=== PATIENT | female | born 1945 | race Caucasian/White ===

== ENCOUNTER 2021-12-15 14:40 | Inpatient (IN) ==
[2021-12-15] MEDS ORDERED: Melatonin 3 MG TABLET PO PRN (18:07)
[2021-12-15] MEDS ORDERED: Naloxone 0.4 MG/ML INJ IVP PRN (18:07)
[2021-12-15] MEDS ORDERED: Ondansetron ODT 4 MG TAB.RAPDIS SL PRN (18:07)
[2021-12-15] MEDS ORDERED: Nitroglycerin 0.4 MG TAB.SUBL SL PRN (21:02)
[2021-12-15] MEDS ORDERED: Morphine Sulfate 2 MG/ML SYRINGE IVP PRN (21:03)
[2021-12-15] MEDS ORDERED: Perflutren Lipid Microsphere 1.3 ML in 0.9 % Sodium Chloride 8.7 ML IVP PRN (21:05)
[2021-12-15 21:34] LABS: Basophils # 0.1 K/mcL (0.0-0.2); Basophils % 0.8 %; Eosinophils # 0.1 K/mcL (0.0-0.6); Eosinophils % 1.4 %; Hematocrit 30.5 % (35.3-44.9); Hemoglobin 9.5 g/dL (11.5-15.4); Immature Granulocytes % 0.3 % (0-4); Lymphocytes # 1.2 K/mcL (0.6-4.6); Lymphocytes % 15.6 %; Mean Corpuscular HGB Conc 31.1 g/dL (31.6-35.5); Mean Corpuscular Hemoglobin 25.7 pg (28.0-33.3); Mean Corpuscular Volume 82.4 fL (83.0-100.0); Mean Platelet Volume 9.4 fL (9.4-12.4); Monocytes # 0.6 K/mcL (0.0-1.3); Monocytes % 7.2 %; Neutrophils # 5.7 K/mcL (1.6-8.9); Platelet Count 390 K/mcL (140-400); Red Cell Distribution Width 14.7 % (11.5-14.5); Segmented Neutrophils % 74.7 %; White Blood Count 7.7 K/mcL (4.3-11.1)
[2021-12-15 21:53] LABS: Alanine Aminotransferase 5 Units/L (7-52); Albumin 3.3 g/dL (3.5-5.7); Alkaline Phosphatase 52 Units/L (34-104); Aspartate Amino Transferase 10 Units/L (13-39); BUN/Creatinine Ratio 21 (6-26); Bilirubin,Total 0.5 mg/dL (0.3-1.0); Blood Urea Nitrogen 16 mg/dL (8-23); Carbon Dioxide 23 mEq/L (23-29); Chloride 103 mEq/L (98-107); Globulin 3.2 g/dL (2.4-3.5); Glucose 163 mg/dL (70-105); Osmolality,Calculated 285 (280-300); Potassium 4.1 mEq/L (3.5-5.1); Sodium 135 mEq/L (136-145); Total Protein 6.5 g/dL (6.4-8.9); eGFR For African Americans > 60 (> 60); eGFR For Non-African Americans > 60 (> 60)
[2021-12-15] MEDS: Famotidine 20 MG/2 ML VIAL IVP SCH (22:12)
[2021-12-15 22:24] LABS: INR 1.1; Prothrombin Time 12.6 Seconds (9.4-12.1)
[2021-12-15 22:27] LABS: Activated Partial Thrombo Time 29.9 Seconds (26.0-36.0)
[2021-12-15] MEDS ORDERED: Isovue-370 500 ML BOTTLE IVP ONE (23:06)
[2021-12-15] MEDS ORDERED: *HR* Dextrose 50 % in Water (Syg) 50 ML SYRINGE IVP PRN (23:15)
[2021-12-15] MEDS ORDERED: D5% in Water 1,000 ML IVC PRN (23:15)
[2021-12-15] MEDS ORDERED: Dextrose 4 GM Chewable Tablets PO PRN ×2 (23:15)
[2021-12-16] MEDS: Insulin LISPRO 300 UNITS/3 ML VIAL SUBQ SCH ×4 (01:11→17:20)
[2021-12-16 02:30] LABS: Hematocrit 29.9 % (35.3-44.9); Hemoglobin 9.2 g/dL (11.5-15.4); Mean Corpuscular HGB Conc 30.8 g/dL (31.6-35.5); Mean Corpuscular Hemoglobin 25.5 pg (28.0-33.3); Mean Corpuscular Volume 82.8 fL (83.0-100.0); Mean Platelet Volume 9.3 fL (9.4-12.4); Platelet Count 411 K/mcL (140-400); Red Blood Count 3.61 M/mcL (3.82-4.97); Red Cell Distribution Width 14.7 % (11.5-14.5); White Blood Count 9.8 K/mcL (4.3-11.1)
[2021-12-16 02:45] LABS: BUN/Creatinine Ratio 21 (6-26); Blood Urea Nitrogen 17 mg/dL (8-23); Calcium 8.9 mg/dL (8.6-10.3); Carbon Dioxide 26 mEq/L (23-29); Chloride 102 mEq/L (98-107); Chol/HDL Ratio 3.1 (0-4.9); Cholesterol 131 mg/dL (< 200); Glucose 136 mg/dL (70-105); HDL Cholesterol 42 mg/dL (40-59); LDL Cholesterol,Calculated 69 mg/dL (< 100); Osmolality,Calculated 282 (280-300); Sodium 134 mEq/L (136-145); Triglycerides 101 mg/dL (< 150); eGFR For African Americans > 60 (> 60); eGFR For Non-African Americans > 60 (> 60)
[2021-12-16 03:07] LABS: Estimated Average Glucose 183 mg/dl
[2021-12-16] MEDS ORDERED: Magnesium Sulfate 1 GM/102 ML PIGGYBACK IVPB ONE (05:07)
[2021-12-16] MEDS ORDERED: Regadenoson 0.4 MG/5 ML SYRINGE IVP ONE (08:00)
[2021-12-16] MEDS: Gabapentin 400 MG CAPSULE PO SCH ×2 (08:44→10:39)
[2021-12-16] MEDS: Famotidine 20 MG/2 ML VIAL IVP SCH ×3 (08:44→20:17)
[2021-12-16] MEDS: lisinopriL 20 MG TABLET PO SCH ×2 (08:44→10:39)
[2021-12-16 09:18] LABS: Troponin I < 0.03 ng/mL (< 0.04)
[2021-12-16] MEDS ORDERED: Morphine Sulfate 2 MG/ML SYRINGE IVP PRN (10:13)
[2021-12-16] MEDS: Pantoprazole 40 MG VIAL IVP SCH (10:39)
[2021-12-16 10:42] LABS: Lipase 23 Units/L (11-82)
[2021-12-16] MEDS: polyethylene glycoL 3350 17 GM POWD.PACK PO PRN (11:11)
[2021-12-16] MEDS ORDERED: GI Cocktail 40 ML EACH PO ONE (11:36)
[2021-12-16] MEDS: *HR* OxyCODONE Immed Rel 5 MG TABLET PO PRN (17:19)
[2021-12-16] MEDS: Acetaminophen 325 MG TABLET PO PRN (22:34)
[2021-12-17] MEDS: Insulin LISPRO 300 UNITS/3 ML VIAL SUBQ SCH ×5 (01:00→23:57)
[2021-12-17 03:13] LABS: Hematocrit 28.2 % (35.3-44.9); Hemoglobin 8.8 g/dL (11.5-15.4); Mean Corpuscular HGB Conc 31.2 g/dL (31.6-35.5); Mean Corpuscular Hemoglobin 26.1 pg (28.0-33.3); Mean Corpuscular Volume 83.7 fL (83.0-100.0); Mean Platelet Volume 9.9 fL (9.4-12.4); Platelet Count 368 K/mcL (140-400); Red Blood Count 3.37 M/mcL (3.82-4.97); Red Cell Distribution Width 15.1 % (11.5-14.5); White Blood Count 10.2 K/mcL (4.3-11.1)
[2021-12-17 03:27] LABS: BUN/Creatinine Ratio 19 (6-26); Blood Urea Nitrogen 18 mg/dL (8-23); Calcium 8.8 mg/dL (8.6-10.3); Carbon Dioxide 27 mEq/L (23-29); Chloride 101 mEq/L (98-107); Glucose 188 mg/dL (70-105); Osmolality,Calculated 283 (280-300); Potassium 4.3 mEq/L (3.5-5.1); Sodium 133 mEq/L (136-145); eGFR For African Americans > 60 (> 60); eGFR For Non-African Americans 56 (> 60)
[2021-12-17] MEDS: Acetaminophen 325 MG TABLET PO PRN (06:04)
[2021-12-17] MEDS ORDERED: Regadenoson 0.4 MG/5 ML SYRINGE IVP ONE (07:31)
[2021-12-17] MEDS: Gabapentin 400 MG CAPSULE PO SCH (10:02)
[2021-12-17] MEDS: Famotidine 20 MG/2 ML VIAL IVP SCH ×2 (10:02→20:28)
[2021-12-17] MEDS: polyethylene glycoL 3350 17 GM POWD.PACK PO PRN (10:02)
[2021-12-17] MEDS: lisinopriL 20 MG TABLET PO SCH (10:02)
[2021-12-17] MEDS: Pantoprazole 40 MG VIAL IVP SCH (10:02)
[2021-12-17] MEDS: *HR* OxyCODONE Immed Rel 5 MG TABLET PO PRN ×2 (11:57→20:30)
[2021-12-18] MEDS: Insulin LISPRO 300 UNITS/3 ML VIAL SUBQ SCH ×3 (06:20→17:58)
[2021-12-18] MEDS: Gabapentin 400 MG CAPSULE PO SCH (09:08)
[2021-12-18] MEDS: lisinopriL 20 MG TABLET PO SCH (09:08)
[2021-12-18] MEDS: Pantoprazole 40 MG VIAL IVP SCH (09:08)
[2021-12-18] MEDS: Aspirin 81 MG TAB.CHEW PO SCH (11:45)
[2021-12-18] MEDS: Metoprolol XL (24 HR) Succ 25 MG TAB.ER.24H PO SCH (11:45)
[2021-12-18] MEDS: Famotidine 20 MG/2 ML VIAL IVP SCH ×2 (11:45→22:06)
[2021-12-18] MEDS: Furosemide 40 MG TABLET PO SCH (11:45)
[2021-12-18 21:13] LABS: Bilirubin,Urine Negative (Negative); Blood,Urine Negative (Negative); Clarity,Urine Clear (Clear); Color,Urine Light-Yellow (Yellow); Glucose,Urine (UA) Normal (Normal); Ketones,Urine Negative (Negative); Leukocyte Esterase,Urine Negative (Negative); Nitrite,Urine Negative (Negative); PH,Urine 5.5 pH Units (5.0-8.0); Protein,Urine Negative (Neg-Trace); Specific Gravity,Urine 1.013 (1.010-1.025); Urobilinogen,Urine Normal (Normal)
[2021-12-18] MEDS: *HR* OxyCODONE Immed Rel 5 MG TABLET PO PRN (22:07)
[2021-12-19] MEDS: Insulin LISPRO 300 UNITS/3 ML VIAL SUBQ SCH ×3 (00:01→11:37)
[2021-12-19 06:48] VITALS: O2SAT 97
[2021-12-19] MEDS: Metoprolol XL (24 HR) Succ 25 MG TAB.ER.24H PO SCH (08:57)
[2021-12-19] MEDS: lisinopriL 20 MG TABLET PO SCH (08:57)
[2021-12-19] MEDS: Furosemide 40 MG TABLET PO SCH (08:57)
[2021-12-19] MEDS: Aspirin 81 MG TAB.CHEW PO SCH (08:58)
[2021-12-19] MEDS: Pantoprazole 40 MG VIAL IVP SCH (08:58)
[2021-12-19] MEDS: Gabapentin 400 MG CAPSULE PO SCH (08:58)
[2021-12-19] MEDS: Famotidine 20 MG/2 ML VIAL IVP SCH (08:58)
[2021-12-19 10:29] VITALS: BP 120/71; PULSE 63; TEMP 98
== END 2021-12-19 17:14 | disposition home or self-care (01) | DRG 313 ==
LOC: 3BNU → SUATTDRO 17:54
PROVIDERS: ADMIT Internal Medicine; ATTEND Student in an Organized Health Care Education/Training Program

== ENCOUNTER 2022-04-14 13:21 | Inpatient (IN) ==
[2022-04-14 14:13] LABS: Basophils # 0.1 K/mcL (0.0-0.2); Basophils % 0.6 %; Eosinophils # 0.3 K/mcL (0.0-0.6); Eosinophils % 3.9 %; Hematocrit 29.9 % (35.3-44.9); Hemoglobin 8.8 g/dL (11.5-15.4); Immature Granulocytes % 0.5 % (0-4); Lymphocytes # 1.3 K/mcL (0.6-4.6); Lymphocytes % 15.6 %; Mean Corpuscular HGB Conc 29.4 g/dL (31.6-35.5); Mean Corpuscular Hemoglobin 23.5 pg (28.0-33.3); Mean Corpuscular Volume 79.7 fL (83.0-100.0); Mean Platelet Volume 9.7 fL (9.4-12.4); Monocytes # 0.7 K/mcL (0.0-1.3); Monocytes % 8.1 %; Neutrophils # 5.9 K/mcL (1.6-8.9); Platelet Count 342 K/mcL (140-400); Red Blood Count 3.75 M/mcL (3.82-4.97); Red Cell Distribution Width 18.1 % (11.5-14.5); Segmented Neutrophils % 71.3 %; White Blood Count 8.3 K/mcL (4.3-11.1)
[2022-04-14] MEDS ORDERED: Nitroglycerin 0.4 MG TAB.SUBL SL PRN (14:15)
[2022-04-14 14:24] LABS: Prothrombin Time 11.6 Seconds (9.4-12.1)
[2022-04-14 14:27] LABS: Activated Partial Thrombo Time 27.4 Seconds (26.0-36.0)
[2022-04-14 14:32] LABS: Potassium 4.8 mEq/L (3.5-5.1)
[2022-04-14 14:35] LABS: Troponin I 0.09 ng/mL (< 0.04)
[2022-04-14] MEDS ORDERED: *HR* Heparin 5,000 UNIT/ML VIAL IVP ONE (14:49)
[2022-04-14] MEDS ORDERED: *HR* Heparin 5,000 UNIT/ML VIAL IVP PRN ×2 (14:49)
[2022-04-14] MEDS ORDERED: MOM Conc 10 ML UD.LIQ PO PRN (15:45)
[2022-04-14] MEDS ORDERED: Naloxone 0.4 MG/ML INJ IVP PRN (15:45)
[2022-04-14] MEDS ORDERED: Ondansetron ODT 4 MG TAB.RAPDIS SL PRN (15:45)
[2022-04-14] MEDS ORDERED: Furosemide 40 MG/4 ML VIAL IVP ONE (15:49)
[2022-04-14] MEDS ORDERED: D5% in Water 1,000 ML IVC PRN (16:00)
[2022-04-14] MEDS ORDERED: Dextrose Gel 15 GM/37.5 ML TUBE PO PRN ×2 (16:00)
[2022-04-14] MEDS ORDERED: *HR* Dextrose 50 % in Water (Syg) 50 ML SYRINGE IVP PRN (16:00)
[2022-04-14] MEDS ORDERED: cefTRIAXone 1,000 MG in 0.9 % Sodium Chloride Mini Bag 100 ML IVPB SCH (16:00)
[2022-04-14] MEDS ORDERED: *HR* FentaNYL (PF) 100 MCG/2 ML VIAL IVP ONE (16:13)
[2022-04-14] MEDS: cefTRIAXone 1,000 MG in Water for inj. (sterile) 10 ML IVP SCH (16:48)
[2022-04-14] MEDS: Albumin 25% 25gram/100mL 25 GM/100 ML IV.SOLN IVPB SCH (17:21)
[2022-04-14] MEDS: Insulin LISPRO 300 UNITS/3 ML VIAL SUBQ SCH ×2 (17:51→19:31)
[2022-04-14 17:55] LABS: Estimated Average Glucose 200 mg/dl; Hemoglobin A1C 8.6 %
[2022-04-14] MEDS: Heparin 25,000UNIT/250ML 1/2NS 25,000 UNIT/250 ML IV.SOLN IVC SCH (18:06)
[2022-04-14] MEDS ORDERED: *HR* HYDROcodone/Acet 10/325 mg TABLET PO ONE (19:48)
[2022-04-14] MEDS: Insulin DETEMIR 100 UNIT/ML X5UNITS SUBQ SCH (20:25)
[2022-04-14] MEDS ORDERED: Clobetasol Propionate 0.05% 15 GM Cream Tube TP SCH (21:00)
[2022-04-14] MEDS ORDERED: Melatonin 3 MG TABLET PO PRN (21:00)
[2022-04-14 21:36] LABS: Hematocrit 30.1 % (35.3-44.9); Hemoglobin 9.1 g/dL (11.5-15.4); Mean Corpuscular HGB Conc 30.2 g/dL (31.6-35.5); Mean Corpuscular Hemoglobin 23.6 pg (28.0-33.3); Mean Corpuscular Volume 78.2 fL (83.0-100.0); Mean Platelet Volume 9.5 fL (9.4-12.4); Platelet Count 358 K/mcL (140-400); Red Blood Count 3.85 M/mcL (3.82-4.97); Red Cell Distribution Width 18.1 % (11.5-14.5); White Blood Count 10.5 K/mcL (4.3-11.1)
[2022-04-15] MEDS: Albumin 25% 25gram/100mL 25 GM/100 ML IV.SOLN IVPB SCH ×3 (00:26→16:47)
[2022-04-15 03:29] LABS: Albumin 3.9 g/dL (3.5-5.7); Albumin/Globulin Ratio 1.3 (1.1-2.2); Bilirubin,Total 0.6 mg/dL (0.3-1.0); Calcium 9.1 mg/dL (8.6-10.3); Chol/HDL Ratio 3.5 (0-4.9); Potassium 4.5 mEq/L (3.5-5.1); Total Protein 6.9 g/dL (6.4-8.9); Troponin I 0.09 ng/mL (< 0.04)
[2022-04-15 03:36] LABS: Basophils # 0.1 K/mcL (0.0-0.2); Basophils % 0.6 %; Eosinophils # 0.4 K/mcL (0.0-0.6); Eosinophils % 3.9 %; Hemoglobin 8.3 g/dL (11.5-15.4); Immature Granulocytes % 0.3 % (0-4); Lymphocytes % 19.4 %; Mean Corpuscular HGB Conc 29.6 g/dL (31.6-35.5); Mean Corpuscular Hemoglobin 23.3 pg (28.0-33.3); Mean Corpuscular Volume 78.7 fL (83.0-100.0); Mean Platelet Volume 10.4 fL (9.4-12.4); Monocytes # 0.9 K/mcL (0.0-1.3); Monocytes % 9.2 %; Neutrophils # 6.8 K/mcL (1.6-8.9); Platelet Count 348 K/mcL (140-400); Red Blood Count 3.56 M/mcL (3.82-4.97); Red Cell Distribution Width 18.2 % (11.5-14.5); Segmented Neutrophils % 66.6 %; White Blood Count 10.2 K/mcL (4.3-11.1)
[2022-04-15] MEDS: Insulin LISPRO 300 UNITS/3 ML VIAL SUBQ SCH ×4 (06:53→19:51)
[2022-04-15] MEDS ORDERED: Furosemide 40 MG/4 ML VIAL IVP ONE (08:00)
[2022-04-15] MEDS: Aspirin 81 MG TAB.CHEW PO SCH (08:31)
[2022-04-15] MEDS: *HR* OxyCODONE Immed Rel 5 MG TABLET PO PRN ×2 (08:31→20:41)
[2022-04-15] MEDS ORDERED: Acetaminophen 325 MG TABLET PO PRN (09:07)
[2022-04-15] MEDS: Heparin 25,000UNIT/250ML 1/2NS 25,000 UNIT/250 ML IV.SOLN IVC SCH (09:22)
[2022-04-15] MEDS: cefTRIAXone 1,000 MG in Water for inj. (sterile) 10 ML IVP SCH (16:48)
[2022-04-15] MEDS: Insulin DETEMIR 100 UNIT/ML X5UNITS SUBQ SCH (20:41)
[2022-04-16] MEDS: Albumin 25% 25gram/100mL 25 GM/100 ML IV.SOLN IVPB SCH ×2 (00:09→08:22)
[2022-04-16 06:24] LABS: Hematocrit 26.4 % (35.3-44.9); Hemoglobin 7.8 g/dL (11.5-15.4); Mean Corpuscular HGB Conc 29.5 g/dL (31.6-35.5); Mean Corpuscular Hemoglobin 23.3 pg (28.0-33.3); Mean Corpuscular Volume 78.8 fL (83.0-100.0); Mean Platelet Volume 9.8 fL (9.4-12.4); Platelet Count 298 K/mcL (140-400); Red Blood Count 3.35 M/mcL (3.82-4.97); White Blood Count 7.8 K/mcL (4.3-11.1)
[2022-04-16 06:51] LABS: Calcium 9.3 mg/dL (8.6-10.3)
[2022-04-16 06:52] LABS: Troponin I 0.06 ng/mL (< 0.04)
[2022-04-16 08:11] LABS: Magnesium 1.8 mg/dL (1.6-2.6)
[2022-04-16] MEDS: Insulin LISPRO 300 UNITS/3 ML VIAL SUBQ SCH ×3 (08:19→17:48)
[2022-04-16] MEDS: Aspirin 81 MG TAB.CHEW PO SCH (08:20)
[2022-04-16] MEDS: *HR* OxyCODONE Immed Rel 5 MG TABLET PO PRN ×2 (08:32→18:00)
[2022-04-16] MEDS ORDERED: Furosemide 40 MG TABLET PO SCH (09:00)
[2022-04-16] MEDS: Mag Hydrox/Al Hydrox/Simeth 30 ML UDC PO PRN ×2 (10:21→17:47)
[2022-04-16 12:51] LABS: Hematocrit 29.1 % (35.3-44.9); Hemoglobin 8.7 g/dL (11.5-15.4)
[2022-04-16 15:06] VITALS: BP 147/75; PULSE 75; TEMP 97.8; O2SAT 94
[2022-04-16] MEDS: cefTRIAXone 1,000 MG in Water for inj. (sterile) 10 ML IVP SCH (17:46)
== END 2022-04-16 19:15 | disposition home or self-care (01) | DRG 280 ==
LOC: 3BNU 13:21 → EMEROOARM 13:21 → SUATTDRO 15:20 → 3BNU 17:00
PROVIDERS: ADMIT Student in an Organized Health Care Education/Training Program; ATTEND Registered Nurse

== ENCOUNTER 2022-07-22 15:57 | Inpatient (IN) ==
[2022-07-22] MEDS ORDERED: Acetaminophen 325 MG TABLET PO PRN (21:12)
[2022-07-22] MEDS ORDERED: Naloxone 0.4 MG/ML INJ IVP PRN ×2 (21:12→21:50)
[2022-07-22] MEDS ORDERED: Melatonin 3 MG TABLET PO PRN (21:12)
[2022-07-22] MEDS ORDERED: Ondansetron ODT 4 MG TAB.RAPDIS SL PRN (21:12)
[2022-07-22] MEDS ORDERED: *HR* OxyCODONE Immed Rel 5 MG TABLET PO PRN (21:50)
[2022-07-22] MEDS ORDERED: *HR* HYDROcodone/Acet 5/325 mg TABLET PO PRN (21:50)
[2022-07-22] MEDS ORDERED: Doxycycline 100 MG in 0.9 % Sodium Chloride Mini Bag 100 ML IVPB SCH (22:00)
[2022-07-22] MEDS ORDERED: Dextrose Gel 15 GM/37.5 ML TUBE PO PRN ×2 (22:20)
[2022-07-22] MEDS ORDERED: D5% in Water 1,000 ML IVC PRN (22:20)
[2022-07-22] MEDS ORDERED: *HR* Dextrose 50 % in Water (Syg) 50 ML SYRINGE IVP PRN (22:20)
[2022-07-22] MEDS ORDERED: Vancomycin 0 MG in 0.9 % Sodium Chloride 250 ML IVPB SCH (23:45)
[2022-07-23] MEDS ORDERED: Vancomycin 1,500 MG/265 ML IV.SOLN IVPB ONE
[2022-07-23] MEDS: Insulin LISPRO 300 UNITS/3 ML VIAL SUBQ SCH ×4 (00:51→18:32)
[2022-07-23] MEDS: Piperacillin/Tazobactam 3.375 GM in 0.9 % Sodium Chloride Mini Bag 100 ML IVPB SCH ×3 (00:52→16:45)
[2022-07-23] MEDS ORDERED: methylPREDNISolone 125 MG/2 ML VIAL IVP ONE (01:26)
[2022-07-23] MEDS ORDERED: Ondansetron 4 MG/2 ML VIAL IVP ONE (01:26)
[2022-07-23] MEDS ORDERED: Ipratropium/Albuterol Neb 3 ML IH PRN (01:26)
[2022-07-23] MEDS ORDERED: Famotidine 20 MG/2 ML VIAL IVP ONE (01:57)
[2022-07-23] MEDS ORDERED: Furosemide 40 MG/4 ML VIAL IVP ONE (01:57)
[2022-07-23] MEDS ORDERED: Furosemide 40 MG/4 ML VIAL ONE (01:59)
[2022-07-23 02:23] LABS: ABG Base Excess 1 mEq/L (-2 to 3); ABG HCO3 25 mEq/L (21-27); ABG Oxygen Saturation 100 % (95-98); ABG PCO2 36 mmHg (35-45); ABG PH 7.45 pH Units (7.32-7.45); ABG PO2 277 mmHg (85-104); ABG TCO2 26 mEq/L (20-26)
[2022-07-23 03:14] LABS: Hematocrit 44.1 % (35.3-44.9); Hemoglobin 12.8 g/dL (11.5-15.4); Mean Corpuscular Volume 79.3 fL (83.0-100.0); Mean Platelet Volume 9.2 fL (9.4-12.4); Platelet Count 491 K/mcL (140-400); Red Blood Count 5.56 M/mcL (3.82-4.97); Red Cell Distribution Width 16.5 % (11.5-14.5); White Blood Count 7.7 K/mcL (4.3-11.1)
[2022-07-23 03:33] LABS: Albumin 3.1 g/dL (3.5-5.7); Albumin/Globulin Ratio 0.7 (1.1-2.2); Bilirubin,Total 0.5 mg/dL (0.3-1.0); Calcium 8.9 mg/dL (8.6-10.3); Globulin 4.4 g/dL (2.4-3.5); Magnesium 1.1 mg/dL (1.6-2.6); Phosphorous 4.5 mg/dL (2.7-4.5); Potassium 4.2 mEq/L (3.5-5.1); Total Protein 7.5 g/dL (6.4-8.9); Troponin I 0.05 ng/mL (< 0.04)
[2022-07-23 03:58] LABS: Basophils % 0.5 %; Eosinophils # 0.1 K/mcL (0.0-0.6); Eosinophils % 1.8 %; Immature Granulocytes % 2.4 % (0-4); Lymphocytes # 0.8 K/mcL (0.6-4.6); Lymphocytes % 10.1 %; Monocytes # 0.1 K/mcL (0.0-1.3); Monocytes % 1.1 %; Neutrophils # 6.4 K/mcL (1.6-8.9); Nucleated Red Blood Cells 0.4 /100 WBC (0); Segmented Neutrophils % 84.1 %
[2022-07-23] MEDS ORDERED: *HR* Heparin 5,000 UNIT/ML VIAL IVP ONE (04:03)
[2022-07-23] MEDS ORDERED: *HR* Heparin 5,000 UNIT/ML VIAL IVP PRN ×2 (04:03)
[2022-07-23] MEDS ORDERED: Albumin 25% 25gram/100mL 25 GM/100 ML IV.SOLN IVPB ONE (04:20)
[2022-07-23] MEDS ORDERED: 0.9 % Sodium Chloride 500 ML IVC ONE ×2 (04:58→06:02)
[2022-07-23] MEDS ORDERED: Albumin 25% 25gram/100mL 25 GM/100 ML IV.SOLN ONE (05:07)
[2022-07-23] MEDS ORDERED: Doxycycline 100 MG in 0.9 % Sodium Chloride Mini Bag 100 ML IVPB SCH (06:00)
[2022-07-23] MEDS: Heparin 25,000UNIT/250ML 1/2NS 25,000 UNIT/250 ML IV.SOLN IVC SCH (06:09)
[2022-07-23] MEDS: Ipratropium/Albuterol Neb 3 ML IH SCH ×6 (07:20→23:03)
[2022-07-23] MEDS ORDERED: Furosemide 40 MG/4 ML VIAL IVP SCH (08:00)
[2022-07-23] MEDS ORDERED: methylPREDNISolone 125 MG/2 ML VIAL IVP SCH (08:00)
[2022-07-23] MEDS: Aspirin Enteric Coated 81 MG Tablet PO SCH (09:56)
[2022-07-23 10:02] LABS: Platelet Count 384 K/mcL (140-400)
[2022-07-23 10:04] LABS: Hemoglobin 9.5 g/dL (11.5-15.4); Mean Corpuscular HGB Conc 29.7 g/dL (31.6-35.5); Mean Corpuscular Hemoglobin 23.2 pg (28.0-33.3); Mean Corpuscular Volume 78.2 fL (83.0-100.0); Mean Platelet Volume 9.4 fL (9.4-12.4); Monocytes # 0.8 K/mcL (0.0-1.3); Red Blood Count 4.09 M/mcL (3.82-4.97); Red Cell Distribution Width 16.3 % (11.5-14.5)
[2022-07-23 10:09] LABS: INR 1.3; Prothrombin Time 14.5 Seconds (9.4-12.1); White Blood Count 37.4 K/mcL (4.3-11.1)
[2022-07-23 10:11] LABS: Calcium 8.3 mg/dL (8.6-10.3); Magnesium 1.4 mg/dL (1.6-2.6); Phosphorous 4.1 mg/dL (2.7-4.5)
[2022-07-23 10:21] LABS: Troponin I 0.45 ng/mL (< 0.04)
[2022-07-23 10:27] LABS: Activated Partial Thrombo Time 148.4 Seconds (26.0-36.0); Heparin anti-factor XA UFH 1.15 IU/mL (0.30-0.70)
[2022-07-23 10:43] LABS: Hypochromasia Present (Not Present); Lymphocytes # 1.5 K/mcL (0.6-4.6); Microcytosis Present (Not Present); Neutrophils # 35.2 K/mcL (1.6-8.9); Platelet Estimate Normal (Normal)
[2022-07-23] MEDS ORDERED: 0.9 % Sodium Chloride 1,000 ML IVC SCH (11:00)
[2022-07-23] MEDS: Acetaminophen IV 1,000 MG/100 ML BAG IVPB SCH ×3 (11:52→23:36)
[2022-07-23] MEDS ORDERED: DAPTOmycin 500 MG in 0.9 % Sodium Chloride 100 ML IVPB SCH (13:00)
[2022-07-23 13:11] LABS: Adenovirus Not Detected (Not Detect); Bordetella Pertussis Not Detected (Not Detect); Chlamydophila pneumoniae Not Detected (Not Detect); Coronavirus 229E Not Detected (Not Detect); Coronavirus HKU1 Not Detected (Not Detect); Coronavirus NL63 Not Detected (Not Detect); Coronavirus OC43 Not Detected (Not Detect); Human Metapneumovirus Not Detected (Not Detect); Human Rhinovirus/Enterovirus Not Detected (Not Detect); Influenza A Subtype 2009 H1 Not Detected (Not Detect); Influenza B Not Detected (Not Detect); Mycoplasma pneumoniae Not Detected (Not Detect); Parainfluenza Virus 1 Not Detected (Not Detect); Parainfluenza Virus 2 Not Detected (Not Detect); Parainfluenza Virus 3 Not Detected (Not Detect); Parainfluenza Virus 4 Not Detected (Not Detect); Respiratory Syncytial Virus Not Detected (Not Detect); SARS-CoV-2 Not Detected (Not Detect)
[2022-07-23 14:53] LABS: Adenovirus F 40/41 PCR Not detected (Not detect); Astrovirus PCR Not detected (Not detect); Campylobacter by PCR Not detected (Not detect); Cryptosporidium by PCR Not detected (Not detect); Cyclospora cayetanensis PCR Not detected (Not detect); Entamoeba histolytica PCR Not detected (Not detect); Enteroaggregative E.coli(EAEC) Not detected (Not detect); Enteropathogenic E.coli(EPEC) Not detected (Not detect); Enterotoxigenic E.coli (ETEC) Not detected (Not detect); Giardia lamblia PCR Not detected (Not detect); Norovirus GI/GII PCR Not detected (Not detect); Plesiomonas shigelloides PCR Not detected (Not detect); Rotavirus A PCR Not detected (Not detect); Salmonella PCR Not detected (Not detect); Sapovirus PCR Not detected (Not detect); Shig/EnteroinvasiveE coli EIEC Not detected (Not detect); Shigalike tox-prod E coli STEC Not detected (Not detect); Vibrio PCR Not detected (Not detect); Vibrio cholerae PCR Not detected (Not detect); Yersinia enterocolitica PCR Not detected (Not detect)
[2022-07-23 14:56] LABS: C.difficile Toxin A/B Gene PCR DETECTED (Not detect)
[2022-07-23] MEDS: Albumin 25% 25gram/100mL 25 GM/100 ML IV.SOLN IVPB SCH (16:36)
[2022-07-23] MEDS ORDERED: Famotidine 20 MG/2 ML VIAL IVP SCH (18:00)
[2022-07-23] MEDS: MetroNIDAZOLE 500 MG/100 ML 500 MG/100 ML BAG IVPB SCH (18:57)
[2022-07-24] MEDS: Albumin 25% 25gram/100mL 25 GM/100 ML IV.SOLN IVPB SCH ×3 (00:51→18:45)
[2022-07-24] MEDS: Piperacillin/Tazobactam 3.375 GM in 0.9 % Sodium Chloride Mini Bag 100 ML IVPB SCH ×3 (01:00→18:46)
[2022-07-24 01:31] LABS: Basophils % 0.1 %; Hematocrit 28.1 % (35.3-44.9); Hemoglobin 8.4 g/dL (11.5-15.4); Immature Granulocytes % 1.2 % (0-4); Lymphocytes # 0.7 K/mcL (0.6-4.6); Lymphocytes % 2.4 %; Mean Corpuscular HGB Conc 29.9 g/dL (31.6-35.5); Mean Corpuscular Hemoglobin 23.1 pg (28.0-33.3); Mean Corpuscular Volume 77.4 fL (83.0-100.0); Mean Platelet Volume 9.5 fL (9.4-12.4); Monocytes # 0.8 K/mcL (0.0-1.3); Monocytes % 2.7 %; Platelet Count 344 K/mcL (140-400); Red Blood Count 3.63 M/mcL (3.82-4.97); Red Cell Distribution Width 16.4 % (11.5-14.5); Segmented Neutrophils % 93.6 %
[2022-07-24 01:34] LABS: Neutrophils # 28.5 K/mcL (1.6-8.9); White Blood Count 30.4 K/mcL (4.3-11.1)
[2022-07-24] MEDS: Insulin LISPRO 300 UNITS/3 ML VIAL SUBQ SCH ×4 (01:36→19:05)
[2022-07-24] MEDS: MetroNIDAZOLE 500 MG/100 ML 500 MG/100 ML BAG IVPB SCH ×3 (01:41→18:45)
[2022-07-24] MEDS: Heparin 25,000UNIT/250ML 1/2NS 25,000 UNIT/250 ML IV.SOLN IVC SCH (01:47)
[2022-07-24 03:40] LABS: Folate 15.5 ng/mL (3.0-16.0)
[2022-07-24] MEDS: Ipratropium/Albuterol Neb 3 ML IH SCH ×6 (04:34→23:09)
[2022-07-24 04:37] LABS: BUN/Creatinine Ratio 21 (6-26); Blood Urea Nitrogen 51 mg/dL (8-23); Carbon Dioxide 26 mEq/L (23-29); Chloride 96 mEq/L (98-107); Glucose 367 mg/dL (70-105); Iron < 10 mcg/dL (50-170); Magnesium 1.8 mg/dL (1.6-2.6); Osmolality,Calculated 307 (280-300); Phosphorous 4.5 mg/dL (2.7-4.5); Potassium 4.2 mEq/L (3.5-5.1); Sodium 134 mEq/L (136-145); Transferrin 195 mg/dL (203-362); Troponin I 0.26 ng/mL (< 0.04)
[2022-07-24 04:44] LABS: Ferritin 55 ng/mL (10-120)
[2022-07-24] MEDS: Acetaminophen IV 1,000 MG/100 ML BAG IVPB SCH ×3 (06:02→19:56)
[2022-07-24] MEDS: Aspirin Enteric Coated 81 MG Tablet PO SCH (10:27)
[2022-07-24] MEDS ORDERED: *HR* Propofol 200 MG/20 ML VIAL IVP ONE (12:55)
[2022-07-24] MEDS ORDERED: *HR* Succinylcholine 200 MG/10 ML VIAL IVP ONE (12:55)
[2022-07-24] MEDS ORDERED: Lidocaine HCL 4 ML Topical Solution (Laryng-O-Jet Kit Sterile Pak) TP ONE (12:55)
[2022-07-24] MEDS ORDERED: Ondansetron 4 MG/2 ML VIAL ONE (12:55)
[2022-07-24] MEDS ORDERED: *HR* FentaNYL (PF) 100 MCG/2 ML VIAL ONE (12:56)
[2022-07-24] MEDS ORDERED: Lidocaine/EPI 1:200k 1% PF 10 ML VIAL ONE (13:10)
[2022-07-24] MEDS ORDERED: Ondansetron 4 MG/2 ML VIAL IVP PRN (13:49)
[2022-07-24] MEDS ORDERED: *HR* HYDROmorphone PF 0.5 MG/0.5 ML SYRINGE IVP PRN ×2 (13:49→16:09)
[2022-07-24] MEDS ORDERED: *HR* FentaNYL (PF) 100 MCG/2 ML VIAL IVP PRN (13:49)
[2022-07-24] MEDS ORDERED: Ketamine HCL *QUVA* 50mg (1mL) SYRINGE ONE (14:02)
[2022-07-24] MEDS ORDERED: *HR* OxyCODONE Immed Rel 5 MG TABLET PO PRN ×2 (15:01→15:35)
[2022-07-24 15:07] LABS: Source,Synovial Fluid right knee
[2022-07-24 15:51] LABS: Appearance,Synovial Fluid Hazy (Clear-Hazy); Color,Synovial Fluid Straw (Straw)
[2022-07-24] MEDS ORDERED: Acetaminophen IV 1,000 MG/100 ML BAG IVPB PRN (16:51)
[2022-07-24] MEDS ORDERED: Piperacillin/Tazobactam 3.375 GM in 0.9 % Sodium Chloride Mini Bag 100 ML IVPB SCH (19:00)
[2022-07-24] MEDS ORDERED: MetroNIDAZOLE 500 MG/100 ML 500 MG/100 ML BAG IVPB SCH (19:00)
[2022-07-24] MEDS ORDERED: Albumin 25% 25gram/100mL 25 GM/100 ML IV.SOLN IVPB SCH (19:15)
[2022-07-24] MEDS ORDERED: Apixaban 5 MG TABLET PO SCH (21:00)
[2022-07-25] MEDS: Insulin LISPRO 300 UNITS/3 ML VIAL SUBQ SCH ×4 (01:05→20:13)
[2022-07-25] MEDS: Acetaminophen IV 1,000 MG/100 ML BAG IVPB SCH ×4 (01:13→20:16)
[2022-07-25] MEDS ORDERED: Sennosides 8.6 MG TABLET PO PRN (01:22)
[2022-07-25] MEDS ORDERED: D5% in Water 1,000 ML IVC PRN (01:22)
[2022-07-25] MEDS ORDERED: Dextrose Gel 15 GM/37.5 ML TUBE PO PRN ×2 (01:22)
[2022-07-25] MEDS ORDERED: Naloxone 0.4 MG/ML INJ IVP PRN (01:22)
[2022-07-25] MEDS ORDERED: MOM Conc 10 ML UD.LIQ PO PRN (01:22)
[2022-07-25] MEDS ORDERED: *HR* Promethazine 25 MG/ML VIAL IM PRN (01:22)
[2022-07-25] MEDS ORDERED: *HR* Dextrose 50 % in Water (Syg) 50 ML SYRINGE IVP PRN (01:22)
[2022-07-25] MEDS: Ascorbic Acid 500 MG TABLET PO SCH ×3 (02:32→20:12)
[2022-07-25] MEDS: Ipratropium/Albuterol Neb 3 ML IH SCH ×5 (04:09→19:47)
[2022-07-25] MEDS: *HR* OxyCODONE Immed Rel 5 MG TABLET PO PRN ×3 (04:29→12:21)
[2022-07-25] MEDS: Multivit/Ca/Min/Fe/FA 1 TAB TABLET PO SCH (08:21)
[2022-07-25] MEDS: Ondansetron ODT 4 MG TAB.RAPDIS SL PRN ×2 (08:21→18:26)
[2022-07-25] MEDS ORDERED: *HR* HYDROmorphone (PF) 1 MG/ML SYRINGE IVP PRN (12:32)
[2022-07-25 13:33] LABS: Hematocrit 30.9 % (35.3-44.9); Hemoglobin 9.1 g/dL (11.5-15.4); Immature Granulocytes % 1.2 % (0-4); Lymphocytes # 0.6 K/mcL (0.6-4.6); Lymphocytes % 2.9 %; Mean Corpuscular HGB Conc 29.4 g/dL (31.6-35.5); Mean Corpuscular Volume 78.2 fL (83.0-100.0); Mean Platelet Volume 9.6 fL (9.4-12.4); Monocytes # 0.9 K/mcL (0.0-1.3); Monocytes % 4.5 %; Neutrophils # 18.8 K/mcL (1.6-8.9); Platelet Count 422 K/mcL (140-400); Red Blood Count 3.95 M/mcL (3.82-4.97); Red Cell Distribution Width 16.8 % (11.5-14.5); Segmented Neutrophils % 91.4 %; White Blood Count 20.6 K/mcL (4.3-11.1)
[2022-07-25 13:58] LABS: Calcium 9.1 mg/dL (8.6-10.3); Potassium 4.3 mEq/L (3.5-5.1)
[2022-07-25] MEDS ORDERED: DAPTOmycin 500 MG in 0.9 % Sodium Chloride 100 ML IVPB SCH (16:00)
[2022-07-25] MEDS: *HR* HYDROmorphone (PF) 1 MG/ML SYRINGE IVP PRN ×2 (18:26→23:46)
[2022-07-25] MEDS: DAPTOmycin 500 MG in 0.9 % Sodium Chloride 100 ML IVPB SCH (20:07)
[2022-07-25] MEDS: Melatonin 3 MG TABLET PO PRN (22:26)
[2022-07-25] MEDS: Acetaminophen 325 MG TABLET PO SCH (23:46)
[2022-07-26] MEDS: Ipratropium/Albuterol Neb 3 ML IH SCH ×7 (00:19→23:43)
[2022-07-26] MEDS: Insulin LISPRO 300 UNITS/3 ML VIAL SUBQ SCH ×3 (00:24→12:40)
[2022-07-26] MEDS: Acetaminophen 325 MG TABLET PO SCH ×4 (06:13→23:54)
[2022-07-26] MEDS: Ascorbic Acid 500 MG TABLET PO SCH ×2 (09:39→18:05)
[2022-07-26] MEDS: Multivit/Ca/Min/Fe/FA 1 TAB TABLET PO SCH (09:39)
[2022-07-26] MEDS: DAPTOmycin 500 MG in 0.9 % Sodium Chloride 100 ML IVPB SCH (18:06)
[2022-07-26] MEDS: Melatonin 3 MG TABLET PO PRN (21:16)
[2022-07-26] MEDS: Apixaban 5 MG TABLET PO SCH (22:52)
[2022-07-26] MEDS: *HR* HYDROmorphone (PF) 1 MG/ML SYRINGE IVP PRN (23:10)
[2022-07-27] MEDS: Insulin LISPRO 300 UNITS/3 ML VIAL SUBQ SCH ×6 (00:29→17:15)
[2022-07-27 01:45] LABS: Hematocrit 29.3 % (35.3-44.9); Hemoglobin 8.5 g/dL (11.5-15.4); Mean Corpuscular Hemoglobin 22.7 pg (28.0-33.3); Mean Corpuscular Volume 78.3 fL (83.0-100.0); Mean Platelet Volume 9.3 fL (9.4-12.4); Platelet Count 421 K/mcL (140-400); Red Blood Count 3.74 M/mcL (3.82-4.97); Red Cell Distribution Width 16.9 % (11.5-14.5); White Blood Count 12.4 K/mcL (4.3-11.1)
[2022-07-27 02:00] LABS: Calcium 9.5 mg/dL (8.6-10.3); Potassium 4.2 mEq/L (3.5-5.1)
[2022-07-27] MEDS: Ipratropium/Albuterol Neb 3 ML IH SCH ×6 (04:34→23:42)
[2022-07-27] MEDS: Acetaminophen 325 MG TABLET PO SCH ×3 (06:11→17:14)
[2022-07-27] MEDS: Ascorbic Acid 500 MG TABLET PO SCH ×2 (08:34→17:14)
[2022-07-27] MEDS: Metoprolol XL (24 HR) Succ 25 MG TAB.ER.24H PO SCH (08:34)
[2022-07-27] MEDS: Multivit/Ca/Min/Fe/FA 1 TAB TABLET PO SCH (08:35)
[2022-07-27] MEDS: Apixaban 5 MG TABLET PO SCH ×2 (08:35→21:21)
[2022-07-27] MEDS ORDERED: Iopamidol - 370 500 ML MLS IVP ONE (09:54)
[2022-07-27 10:01] LABS: ABG Base Excess 4 mEq/L (-2 to 3); ABG HCO3 30 mEq/L (21-27); ABG Oxygen Saturation 98 % (95-98); ABG PCO2 50 mmHg (35-45); ABG PH 7.39 pH Units (7.32-7.45); ABG PO2 112 mmHg (85-104); ABG TCO2 32 mEq/L (20-26)
[2022-07-27] MEDS: *HR* HYDROmorphone (PF) 1 MG/ML SYRINGE IVP PRN (10:19)
[2022-07-27] MEDS: Piperacillin/Tazobactam 3.375 GM in 0.9 % Sodium Chloride Mini Bag 100 ML IVPB SCH ×2 (11:03→17:48)
[2022-07-27] MEDS ORDERED: *HR* HYDROmorphone (PF) 1 MG/ML SYRINGE IVP PRN ×2 (12:24→18:46)
[2022-07-27] MEDS: *HR* OxyCODONE Immed Rel 5 MG TABLET PO PRN (17:03)
[2022-07-27] MEDS: DAPTOmycin 500 MG in 0.9 % Sodium Chloride 100 ML IVPB SCH (17:12)
[2022-07-28] MEDS: Insulin LISPRO 300 UNITS/3 ML VIAL SUBQ SCH ×5 (00:46→23:48)
[2022-07-28] MEDS: Ipratropium/Albuterol Neb 3 ML IH SCH ×5 (04:29→20:24)
[2022-07-28] MEDS: Multivit/Ca/Min/Fe/FA 1 TAB TABLET PO SCH (08:46)
[2022-07-28] MEDS: Metoprolol XL (24 HR) Succ 25 MG TAB.ER.24H PO SCH (08:46)
[2022-07-28] MEDS: Ascorbic Acid 500 MG TABLET PO SCH ×2 (08:46→17:29)
[2022-07-28] MEDS: Apixaban 5 MG TABLET PO SCH ×2 (08:46→21:02)
[2022-07-28 10:25] LABS: Basophils # 0.1 K/mcL (0.0-0.2); Basophils % 0.4 %; Eosinophils # 0.4 K/mcL (0.0-0.6); Eosinophils % 3.3 %; Hematocrit 31.7 % (35.3-44.9); Hemoglobin 9.3 g/dL (11.5-15.4); Immature Granulocytes % 1.3 % (0-4); Lymphocytes # 1.4 K/mcL (0.6-4.6); Lymphocytes % 10.6 %; Mean Corpuscular HGB Conc 29.3 g/dL (31.6-35.5); Mean Corpuscular Hemoglobin 23.1 pg (28.0-33.3); Mean Corpuscular Volume 78.7 fL (83.0-100.0); Mean Platelet Volume 9.3 fL (9.4-12.4); Monocytes # 0.8 K/mcL (0.0-1.3); Monocytes % 5.7 %; Neutrophils # 10.4 K/mcL (1.6-8.9); Nucleated Red Blood Cells 0.2 /100 WBC (0); Platelet Count 495 K/mcL (140-400); Red Blood Count 4.03 M/mcL (3.82-4.97); Red Cell Distribution Width 17.2 % (11.5-14.5); Segmented Neutrophils % 78.7 %; White Blood Count 13.2 K/mcL (4.3-11.1)
[2022-07-28 10:46] LABS: Calcium 9.4 mg/dL (8.6-10.3); Potassium 4.8 mEq/L (3.5-5.1)
[2022-07-28] MEDS: *HR* HYDROmorphone (PF) 1 MG/ML SYRINGE IVP PRN ×2 (15:22→21:42)
[2022-07-28] MEDS: DAPTOmycin 500 MG in 0.9 % Sodium Chloride 100 ML IVPB SCH (17:29)
[2022-07-28] MEDS: Melatonin 3 MG TABLET PO PRN (21:03)
[2022-07-29] MEDS: Ipratropium/Albuterol Neb 3 ML IH SCH ×6 (00:04→20:18)
[2022-07-29 01:36] LABS: Basophils # 0.1 K/mcL (0.0-0.2); Basophils % 0.5 %; Eosinophils # 0.5 K/mcL (0.0-0.6); Eosinophils % 3.5 %; Hematocrit 30.2 % (35.3-44.9); Immature Granulocytes % 1.9 % (0-4); Lymphocytes % 15.3 %; Mean Corpuscular HGB Conc 29.8 g/dL (31.6-35.5); Mean Platelet Volume 9.8 fL (9.4-12.4); Monocytes # 0.9 K/mcL (0.0-1.3); Monocytes % 6.4 %; Neutrophils # 9.6 K/mcL (1.6-8.9); Platelet Count 559 K/mcL (140-400); Red Blood Count 3.92 M/mcL (3.82-4.97); Red Cell Distribution Width 17.1 % (11.5-14.5); Segmented Neutrophils % 72.4 %; White Blood Count 13.2 K/mcL (4.3-11.1)
[2022-07-29 01:53] LABS: Calcium 9.4 mg/dL (8.6-10.3); Potassium 4.4 mEq/L (3.5-5.1)
[2022-07-29] MEDS: Insulin LISPRO 300 UNITS/3 ML VIAL SUBQ SCH ×3 (05:50→17:19)
[2022-07-29] MEDS: Ondansetron ODT 4 MG TAB.RAPDIS SL PRN (10:17)
[2022-07-29] MEDS: *HR* OxyCODONE Immed Rel 15 MG TABLET PO PRN ×2 (10:18→14:14)
[2022-07-29] MEDS: Ascorbic Acid 500 MG TABLET PO SCH ×2 (10:19→17:19)
[2022-07-29] MEDS: Multivit/Ca/Min/Fe/FA 1 TAB TABLET PO SCH (10:19)
[2022-07-29] MEDS: Metoprolol XL (24 HR) Succ 25 MG TAB.ER.24H PO SCH (10:19)
[2022-07-29] MEDS: Apixaban 5 MG TABLET PO SCH ×2 (10:19→21:05)
[2022-07-29] MEDS: *HR* FentaNYL PATCH 25 MCG PATCH TD SCH (14:14)
[2022-07-29] MEDS: DAPTOmycin 500 MG in 0.9 % Sodium Chloride 100 ML IVPB SCH (17:18)
[2022-07-29] MEDS: *HR* HYDROmorphone (PF) 1 MG/ML SYRINGE IVP PRN (17:19)
[2022-07-30] MEDS: Ipratropium/Albuterol Neb 3 ML IH SCH ×7 (00:28→23:06)
[2022-07-30] MEDS: Insulin LISPRO 300 UNITS/3 ML VIAL SUBQ SCH ×4 (01:47→17:40)
[2022-07-30 02:02] LABS: White Blood Count 11.4 K/mcL (4.3-11.1)
[2022-07-30 02:03] LABS: Basophils # 0.1 K/mcL (0.0-0.2); Basophils % 0.6 %; Eosinophils # 0.4 K/mcL (0.0-0.6); Eosinophils % 3.7 %; Hematocrit 29.7 % (35.3-44.9); Hemoglobin 8.8 g/dL (11.5-15.4); Immature Granulocytes % 2.2 % (0-4); Lymphocytes # 1.7 K/mcL (0.6-4.6); Lymphocytes % 14.9 %; Mean Corpuscular HGB Conc 29.6 g/dL (31.6-35.5); Mean Corpuscular Hemoglobin 23.3 pg (28.0-33.3); Mean Corpuscular Volume 78.6 fL (83.0-100.0); Mean Platelet Volume 9.2 fL (9.4-12.4); Monocytes # 0.7 K/mcL (0.0-1.3); Monocytes % 6.2 %; Neutrophils # 8.3 K/mcL (1.6-8.9); Platelet Count 487 K/mcL (140-400); Red Blood Count 3.78 M/mcL (3.82-4.97); Segmented Neutrophils % 72.4 %
[2022-07-30 02:23] LABS: Calcium 9.1 mg/dL (8.6-10.3); Potassium 4.6 mEq/L (3.5-5.1)
[2022-07-30] MEDS: *HR* HYDROmorphone (PF) 1 MG/ML SYRINGE IVP PRN ×2 (07:49→22:31)
[2022-07-30] MEDS: Multivit/Ca/Min/Fe/FA 1 TAB TABLET PO SCH (08:12)
[2022-07-30] MEDS: Metoprolol XL (24 HR) Succ 25 MG TAB.ER.24H PO SCH (08:13)
[2022-07-30] MEDS: Apixaban 5 MG TABLET PO SCH ×2 (08:13→22:32)
[2022-07-30] MEDS: Ascorbic Acid 500 MG TABLET PO SCH ×2 (08:14→17:18)
[2022-07-30] MEDS ORDERED: Lidocaine -MPF 1% 5 ML AMPUL INFILT ONE (09:17)
[2022-07-30] MEDS: *HR* OxyCODONE Immed Rel 5 MG TABLET PO PRN (15:40)
[2022-07-30] MEDS: DAPTOmycin 500 MG in 0.9 % Sodium Chloride 100 ML IVPB SCH (17:36)
[2022-07-30] MEDS: Melatonin 3 MG TABLET PO PRN (22:31)
[2022-07-31] MEDS: *HR* OxyCODONE Immed Rel 5 MG TABLET PO PRN ×2 (01:54→09:39)
[2022-07-31] MEDS: Insulin LISPRO 300 UNITS/3 ML VIAL SUBQ SCH ×5 (01:55→21:06)
[2022-07-31 02:07] LABS: Basophils # 0.1 K/mcL (0.0-0.2); Basophils % 0.7 %; Eosinophils # 0.4 K/mcL (0.0-0.6); Eosinophils % 3.6 %; Hemoglobin 8.8 g/dL (11.5-15.4); Immature Granulocytes % 1.9 % (0-4); Lymphocytes # 1.5 K/mcL (0.6-4.6); Lymphocytes % 12.4 %; Mean Corpuscular HGB Conc 29.3 g/dL (31.6-35.5); Mean Corpuscular Hemoglobin 23.1 pg (28.0-33.3); Mean Corpuscular Volume 78.7 fL (83.0-100.0); Mean Platelet Volume 9.4 fL (9.4-12.4); Monocytes # 0.8 K/mcL (0.0-1.3); Monocytes % 6.4 %; Neutrophils # 9.1 K/mcL (1.6-8.9); Platelet Count 474 K/mcL (140-400); Red Blood Count 3.81 M/mcL (3.82-4.97); Red Cell Distribution Width 18.4 % (11.5-14.5); White Blood Count 12.1 K/mcL (4.3-11.1)
[2022-07-31 02:15] LABS: Calcium 9.3 mg/dL (8.6-10.3); Potassium 4.8 mEq/L (3.5-5.1)
[2022-07-31] MEDS: Ipratropium/Albuterol Neb 3 ML IH SCH ×6 (03:37→23:14)
[2022-07-31] MEDS: Apixaban 5 MG TABLET PO SCH ×2 (09:39→21:24)
[2022-07-31] MEDS: Multivit/Ca/Min/Fe/FA 1 TAB TABLET PO SCH (09:40)
[2022-07-31] MEDS: Metoprolol XL (24 HR) Succ 25 MG TAB.ER.24H PO SCH (09:40)
[2022-07-31] MEDS: Ascorbic Acid 500 MG TABLET PO SCH ×2 (09:48→18:13)
[2022-07-31] MEDS: *HR* OxyCODONE Immed Rel 15 MG TABLET PO PRN (13:46)
[2022-07-31] MEDS: Gabapentin 400 MG CAPSULE PO SCH (18:13)
[2022-07-31] MEDS: *HR* OxyCODONE Immed Rel 5 MG TABLET PO SCH (18:13)
[2022-07-31] MEDS: DAPTOmycin 500 MG in 0.9 % Sodium Chloride 100 ML IVPB SCH (18:14)
[2022-08-01] MEDS: *HR* OxyCODONE Immed Rel 5 MG TABLET PO SCH ×4 (00:09→17:36)
[2022-08-01 03:08] LABS: Basophils # 0.1 K/mcL (0.0-0.2); Basophils % 0.5 %; Eosinophils # 0.5 K/mcL (0.0-0.6); Eosinophils % 3.5 %; Hematocrit 30.2 % (35.3-44.9); Hemoglobin 8.9 g/dL (11.5-15.4); Immature Granulocytes % 1.7 % (0-4); Lymphocytes # 1.5 K/mcL (0.6-4.6); Lymphocytes % 11.2 %; Mean Corpuscular HGB Conc 29.5 g/dL (31.6-35.5); Mean Corpuscular Hemoglobin 23.1 pg (28.0-33.3); Mean Corpuscular Volume 78.2 fL (83.0-100.0); Mean Platelet Volume 9.7 fL (9.4-12.4); Monocytes # 0.9 K/mcL (0.0-1.3); Monocytes % 7.1 %; Neutrophils # 9.9 K/mcL (1.6-8.9); Platelet Count 454 K/mcL (140-400); Red Blood Count 3.86 M/mcL (3.82-4.97); Red Cell Distribution Width 18.3 % (11.5-14.5)
[2022-08-01 03:26] LABS: BUN/Creatinine Ratio 22 (6-26); Blood Urea Nitrogen 15 mg/dL (8-23); C-Reactive Protein 24 mg/L (Less than 10); Calcium 9.7 mg/dL (8.6-10.3); Carbon Dioxide 30 mEq/L (23-29); Chloride 98 mEq/L (98-107); Glucose 144 mg/dL (70-105); Osmolality,Calculated 281 (280-300); Potassium 4.8 mEq/L (3.5-5.1); Sodium 134 mEq/L (136-145)
[2022-08-01] MEDS: Ipratropium/Albuterol Neb 3 ML IH SCH ×6 (03:54→23:55)
[2022-08-01] MEDS: Metoprolol XL (24 HR) Succ 25 MG TAB.ER.24H PO SCH (09:29)
[2022-08-01] MEDS: Gabapentin 400 MG CAPSULE PO SCH (09:30)
[2022-08-01] MEDS: Ascorbic Acid 500 MG TABLET PO SCH ×2 (09:30→17:35)
[2022-08-01] MEDS: Apixaban 5 MG TABLET PO SCH ×2 (09:31→20:50)
[2022-08-01] MEDS: Multivit/Ca/Min/Fe/FA 1 TAB TABLET PO SCH (09:35)
[2022-08-01] MEDS: Insulin LISPRO 300 UNITS/3 ML VIAL SUBQ SCH ×4 (09:41→20:59)
[2022-08-01] MEDS: *HR* FentaNYL PATCH 25 MCG PATCH TD SCH (13:26)
[2022-08-01] MEDS: DAPTOmycin 500 MG in 0.9 % Sodium Chloride 100 ML IVPB SCH (17:34)
[2022-08-02] MEDS: *HR* OxyCODONE Immed Rel 5 MG TABLET PO SCH ×4 (00:22→18:49)
[2022-08-02] MEDS: Ipratropium/Albuterol Neb 3 ML IH SCH ×6 (04:17→23:59)
[2022-08-02] MEDS: Metoprolol XL (24 HR) Succ 25 MG TAB.ER.24H PO SCH (08:10)
[2022-08-02] MEDS: Insulin LISPRO 300 UNITS/3 ML VIAL SUBQ SCH ×4 (08:10→21:11)
[2022-08-02] MEDS: Multivit/Ca/Min/Fe/FA 1 TAB TABLET PO SCH (08:10)
[2022-08-02] MEDS: Gabapentin 400 MG CAPSULE PO SCH (08:11)
[2022-08-02] MEDS: Apixaban 5 MG TABLET PO SCH ×2 (08:11→21:09)
[2022-08-02] MEDS: Ascorbic Acid 500 MG TABLET PO SCH ×2 (08:12→16:01)
[2022-08-02] MEDS: *HR* HYDROcodone/Acet 5/325 mg TABLET PO PRN (08:14)
[2022-08-02] MEDS: *HR* HYDROmorphone (PF) 1 MG/ML SYRINGE IVP PRN (16:01)
[2022-08-02] MEDS: DAPTOmycin 500 MG in 0.9 % Sodium Chloride 100 ML IVPB SCH (18:48)
[2022-08-03] MEDS: *HR* OxyCODONE Immed Rel 5 MG TABLET PO SCH ×2 (00:18→06:08)
[2022-08-03] MEDS: *HR* HYDROmorphone (PF) 1 MG/ML SYRINGE IVP PRN (03:14)
[2022-08-03] MEDS: Ipratropium/Albuterol Neb 3 ML IH SCH ×4 (03:44→16:15)
[2022-08-03 04:05] LABS: Calcium 9.4 mg/dL (8.6-10.3); Potassium 4.9 mEq/L (3.5-5.1)
[2022-08-03] MEDS: Apixaban 5 MG TABLET PO SCH (08:24)
[2022-08-03] MEDS: Multivit/Ca/Min/Fe/FA 1 TAB TABLET PO SCH (08:24)
[2022-08-03] MEDS: Metoprolol XL (24 HR) Succ 25 MG TAB.ER.24H PO SCH (08:24)
[2022-08-03] MEDS: Gabapentin 400 MG CAPSULE PO SCH (08:24)
[2022-08-03] MEDS: *HR* HYDROcodone/Acet 5/325 mg TABLET PO PRN (08:24)
[2022-08-03] MEDS: Insulin LISPRO 300 UNITS/3 ML VIAL SUBQ SCH ×3 (08:25→16:43)
[2022-08-03] MEDS: Ascorbic Acid 500 MG TABLET PO SCH ×2 (08:25→16:38)
[2022-08-03] MEDS: Ondansetron ODT 4 MG TAB.RAPDIS SL PRN (08:28)
[2022-08-03] MEDS ORDERED: Morphine Sulfate 2 MG/ML SYRINGE IVP ONE (09:00)
[2022-08-03] MEDS: *HR* OxyCODONE/APAP 5/325 TABLET PO SCH ×2 (12:14→16:38)
[2022-08-03 15:00] VITALS: BP 130/63; PULSE 85; TEMP 97.1
[2022-08-03 16:18] VITALS: O2SAT 99
[2022-08-03] MEDS: DAPTOmycin 500 MG in 0.9 % Sodium Chloride 100 ML IVPB SCH (16:36)
== END 2022-08-03 17:20 | DRG 853 ==
LOC: 4WAOSI → SUATTDRO 19:10 → 3NENU 07-23 04:36 → SUATTDRO 07-23 10:59
PROVIDERS: ADMIT Hospitalist; ATTEND Internal Medicine